=== PATIENT | female | born 1985 | race Caucasian/White ===

== ENCOUNTER 2018-09-28 17:03 | Observation (INO) | payer MEDICARE ==
[~2018-09-28] VITALS: Ht 172.7 cm; Wt 95.3 kg
[2018-09-28] MEDS ORDERED: PREN1TAB80 PO (17:53)
[2018-09-28 17:56] VITALS: BP 109/76
[2018-09-28] MEDS: RINGERS SOLUTION,LACTATED 1,000 ML IV SCH ×2 (18:29→22:07)
[2018-09-28 18:55] LABS: BASOPHILS % (AUTO) 0.3 % (0.0-2.0); EOSINOPHILS % (AUTO) 1.3 % (1.0-6.0); HEMATOCRIT 36.5 % (36-46); HEMOGLOBIN 12.5 g/dL (12.0-16.0); LYMPHOCYTES # (AUTO) 2.3 K/uL (1.0-4.8); LYMPHOCYTES % (AUTO) 19.8 % (22.0-44.0); MEAN CORPUSCULAR HEMOGLOBIN 30.5 pg (26.0-34.0); MEAN CORPUSCULAR HGB CONC 34.2 G/dL (31.0-37.0); MEAN CORPUSCULAR VOLUME 89 fL (80-100); MONOCYTES # (AUTO) 0.7 K/uL (0.1-1.0); MONOCYTES % (AUTO) 6.3 % (2.0-9.0); NEUTROPHILS # (AUTO) 8.3 K/uL (1.8-7.7); NEUTROPHILS % (AUTO) 72.3 % (40.0-70.0); PLATELET COUNT (AUTO)-OB 301 K/uL (150-450); RED BLOOD CELL COUNT(AUTO) 4.09 MIL/uL (4.00-5.20); RED CELL DISTRIBUTION WIDTH 13.8 % (11.5-14.5)
[2018-09-28] MEDS ORDERED: ACET650S28 PO (21:34)
[2018-09-29] MEDS: RINGERS SOLUTION,LACTATED 1,000 ML IV SCH (06:21)
[2018-09-29] MEDS ORDERED: BETAMETHASONE SOLUSPAN 6 MG/ML 5 ML VIAL IM ONE (13:15)
== END 2018-09-29 13:40 | disposition home or self-care (01) ==
LOC: 4S 17:03
PROVIDERS: ADMIT Obstetrics & Gynecology Gynecology; ATTEND Obstetrics & Gynecology Gynecology
DX: O44.52 Low lying placenta with hemorrhage, second trimester (principal); Z3A.25 25 weeks gestation of pregnancy; Z23 Encounter for immunization
CPT/HCPCS: 36415; 76811; 85025; 90471; 90686; 96372; G0378 ×2; J0702; J7120 ×2; 96360; 96361

== ENCOUNTER 2020-04-02 18:46 | Emergency (ER) | payer MEDICAID, MEDICARE ==
[~2020-04-02] VITALS: Ht 172.7 cm; Wt 79.1 kg
[~2020-04-02 18:46] MED LIST: ACET650S28 PO; PREN1TAB80 PO
[2020-04-02 18:51] VITALS: BP 133/88
[2020-04-02] MEDS ORDERED: PERTUSS(ACELL),DIPH,TET VAC/PF 0.5 ML VIAL IM ONE (19:15)
[2020-04-02] MEDS ORDERED: ACET-2247 PO (19:19)
== END 2020-04-02 19:32 | disposition home or self-care (01) ==
LOC: EMS 18:46
DX: L08.9 Local infection of the skin and subcutaneous tissue, unspecified (principal); F17.210 Nicotine dependence, cigarettes, uncomplicated; Z88.1 Allergy status to other antibiotic agents; X58.XXXA Exposure to other specified factors, initial encounter; Y93.89 Activity, other specified; Y92.89 Other specified places as the place of occurrence of the external cause; Y99.8 Other external cause status
CPT/HCPCS: 90471; 90715